=== PATIENT | female | born 1975 | race Caucasian/White ===

== ENCOUNTER → 2023-08-03 | Outpatient (REF) | payer MEDICAID, SELFPAY ==
[2023-08-03 09:15] LABS: Hematocrit 39.2 % (37-47); Mean Corp Hgb Conc 30.6 g/dL (32-36); Mean Corpuscular Hgb 30.7 pg (27.0-32.0); Mean Corpuscular Volume 100.3 fL (81-99); Mean Platelet Vol. 11.3 fl (6.2-12.0); Platelet Count 394 K/mm3 (150-450); RBC Distribution Width CV 17.1 % (11.6-14.6); RBC Distribution Width SD 63.7 fl (35.1-43.9); Red Blood Count 3.91 M/mm3 (4.2-5.4); White Blood Count 11.1 K/mm3 (4.4-11.0)
[2023-08-03 09:35] LABS: ALB/GLOB Ratio 0.5 RATIO (0.9-2.4); AST(SGOT) 19 U/L (15-37); Alanine Aminotransfer ALT/SGPT 44 U/L (13-56); Albumin, Serum 2.5 g/dL (3.2-5.0); Alkaline Phosphatase 188 U/L (45-117); Anion Gap 6 (5-15); BUN 20 mg/dL (7-18); BUN/Creat Ratio 44.6 RATIO (10-20); Calcium,Total 9.1 mg/dL (8.5-10.1); Chloride 106 mmol/L (98-107); Creatinine, Serum 0.45 mg/dL (0.55-1.02); EST Glomerular Filtration Rate 160 mL/min (>60); Est Glom Filt Rate - Afr Amer 194 mL/min (>60); Globulin 4.7 g/dL (2.2-4.2); Glucose 102 mg/dL (74-106); Protein, Total 7.2 g/dL (6.4-8.2); Sodium Level 139 mmol/L (136-145)
== END | disposition home or self-care (01) ==
LOC: OLS.SANC 06:00
PROVIDERS: Visit Provider Internal Medicine
DX: Z79.899 Other long term (current) drug therapy (principal)
CPT/HCPCS: 36415; 80053; 85027

== ENCOUNTER → 2023-08-08 | Outpatient (REF) | payer MEDICAID, SELFPAY ==
[2023-08-08 08:35] LABS: Mucous, Urine 0 SEEN /hpf (<or=2+); Red Blood Cells-Urine 0 SEEN /hpf (0-5); White Blood Cells 0 SEEN /hpf (0-5)
[2023-08-08 08:51] LABS: Color, Urine Yellow (Yellow); Glucose, Dipstick Normal (Normal); Ketone-Dipstick Negative (Negative); Leukocyte Esterase-Dipstick 25 /ul (Negative); Nitrite-Dipstick Positive (Negative); Occult Blood-Urine Negative /ul (Negative); Protein-Dipstick 30 mg/dl (Negative); Urine Bilirubin Dipstick Negative (Negative); Urine Clarity Clear (Clear); Urine Urobilinogen Normal (Normal)
[2023-08-08 09:08] LABS: Amorphous Sediment 1+; Bacteria 2+ /hpf (None Seen); Squamous Epithelial Cells - UA 5-10 SEEN /hpf (5-10)
== END | disposition home or self-care (01) ==
LOC: OLS.SANC 05:00
PROVIDERS: Visit Provider Internal Medicine
DX: R39.9 Unspecified symptoms and signs involving the genitourinary system (principal)
CPT/HCPCS: 81001; 87077; 87086; 87088; 87186

== ENCOUNTER → 2023-08-17 | Outpatient (REF) | payer MEDICAID, SELFPAY ==
[2023-08-17 09:41] LABS: Hematocrit 39.1 % (37-47); Hemoglobin 12.3 g/dL (12.0-15.0); Mean Corp Hgb Conc 31.5 g/dL (32-36); Mean Corpuscular Hgb 30.7 pg (27.0-32.0); Mean Corpuscular Volume 97.5 fL (81-99); Mean Platelet Vol. 10.5 fl (6.2-12.0); Platelet Count 424 K/mm3 (150-450); RBC Distribution Width CV 15.9 % (11.6-14.6); RBC Distribution Width SD 58.1 fl (35.1-43.9); Red Blood Count 4.01 M/mm3 (4.2-5.4); White Blood Count 13.9 K/mm3 (4.4-11.0)
[2023-08-17 09:55] LABS: Anion Gap 7 (5-15); BUN 8 mg/dL (7-18); BUN/Creat Ratio 15.5 RATIO (10-20); Calcium,Total 8.9 mg/dL (8.5-10.1); Chloride 106 mmol/L (98-107); Creatinine, Serum 0.52 mg/dL (0.55-1.02); EST Glomerular Filtration Rate 136 mL/min (>60); Est Glom Filt Rate - Afr Amer 164 mL/min (>60); Glucose 112 mg/dL (74-106); Potassium 3.9 mmol/L (3.5-5.1); Sodium Level 139 mmol/L (136-145)
== END | disposition home or self-care (01) ==
LOC: OLS.SANC 05:00
PROVIDERS: Visit Provider Internal Medicine
DX: S42.201S Unspecified fracture of upper end of right humerus, sequela (principal); J96.90 Respiratory failure, unspecified, unspecified whether with hypoxia or hypercapnia; I31.2 Hemopericardium, not elsewhere classified; Z90.81 Acquired absence of spleen
CPT/HCPCS: 36415; 80048; 85027

== ENCOUNTER → 2023-08-19 | Outpatient (REF) | payer MEDICAID, SELFPAY ==
[2023-08-19 10:13] LABS: Hematocrit 35.4 % (37-47); Hemoglobin 11.3 g/dL (12.0-15.0); Mean Corp Hgb Conc 31.9 g/dL (32-36); Mean Corpuscular Hgb 30.8 pg (27.0-32.0); Mean Corpuscular Volume 96.5 fL (81-99); Mean Platelet Vol. 10.7 fl (6.2-12.0); Platelet Count 396 K/mm3 (150-450); RBC Distribution Width SD 57.1 fl (35.1-43.9); Red Blood Count 3.67 M/mm3 (4.2-5.4); White Blood Count 12.6 K/mm3 (4.4-11.0)
[2023-08-19 10:36] LABS: Anion Gap 7 (5-15); BUN 10 mg/dL (7-18); Calcium,Total 8.3 mg/dL (8.5-10.1); Chloride 107 mmol/L (98-107); EST Glomerular Filtration Rate 141 mL/min (>60); Est Glom Filt Rate - Afr Amer 171 mL/min (>60); Glucose 87 mg/dL (74-106); Potassium 3.3 mmol/L (3.5-5.1); Sodium Level 140 mmol/L (136-145)
== END | disposition home or self-care (01) ==
LOC: OLS.SANC 05:00
PROVIDERS: Visit Provider Internal Medicine
DX: J96.90 Respiratory failure, unspecified, unspecified whether with hypoxia or hypercapnia (principal); I10 Essential (primary) hypertension
CPT/HCPCS: 36415; 80048; 85027

== ENCOUNTER → 2023-08-24 | Outpatient (REF) | payer MEDICAID, SELFPAY ==
[2023-08-24 09:00] LABS: Hematocrit 39.2 % (37-47); Hemoglobin 12.4 g/dL (12.0-15.0); Mean Corp Hgb Conc 31.6 g/dL (32-36); Mean Corpuscular Hgb 30.5 pg (27.0-32.0); Mean Corpuscular Volume 96.6 fL (81-99); Mean Platelet Vol. 10.5 fl (6.2-12.0); Platelet Count 418 K/mm3 (150-450); RBC Distribution Width CV 15.9 % (11.6-14.6); Red Blood Count 4.06 M/mm3 (4.2-5.4); White Blood Count 15.1 K/mm3 (4.4-11.0)
[2023-08-24 09:11] LABS: Anion Gap 8 (5-15); BUN 6 mg/dL (7-18); BUN/Creat Ratio 12.5 RATIO (10-20); Calcium,Total 8.7 mg/dL (8.5-10.1); Chloride 109 mmol/L (98-107); Creatinine, Serum 0.48 mg/dL (0.55-1.02); EST Glomerular Filtration Rate 148 mL/min (>60); Est Glom Filt Rate - Afr Amer 179 mL/min (>60); Glucose 101 mg/dL (74-106); Potassium 3.7 mmol/L (3.5-5.1); Sodium Level 141 mmol/L (136-145)
== END | disposition home or self-care (01) ==
LOC: OLS.SANC 05:00
PROVIDERS: Visit Provider Internal Medicine
DX: J96.90 Respiratory failure, unspecified, unspecified whether with hypoxia or hypercapnia (principal)
CPT/HCPCS: 36415; 80048; 85027